=== PATIENT | male | born 1960 | race Caucasian/White ===

== ENCOUNTER 2016-08-20 13:12 | Emergency (ER) | payer OTHER ==
--- NOTE | 2016-08-20 13:25 | EDPHY ---
H & P Stated Complaint: hiking in [place]/pulle off tick 08/07 now with fevers/achy joints Time Seen by Provider: 08/20/16 13:22 HPI/ROS: CHIEF COMPLAINT: Fever, headache, myalgia. HISTORY OF PRESENT ILLNESS: The patient is a 56-year-old male who presents with 4 days of fever, chills, myalgia, joint pain, retro-orbital discomfort and headache. He does report finding a large black tick on his body 12 days ago after having been in [place] fly fishing several days prior. Patient was in [place] at the end of July. The tick was found on August 08. Patient developed intermittent fevers on August 15. He has been taking Tylenol for the fever, which works temporarily. He admits nausea. No vomiting, rash, chest pain, cough , sore throat, shortness of breath, palpitations, vomiting, diarrhea, urinary complaints, lightheadedness. REVIEW OF SYSTEMS: Aside from elements discussed in the HPI, a comprehensive 10-point review of systems was reviewed and is negative. PAST MEDICAL HISTORY: Denies. SOCIAL HISTORY: From [place], [place]. 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 VITAL SIGNS: Reviewed by me GENERAL: Well-developed, well-nourished, resting comfortably in no respiratory distress. HEENT: Atraumatic. Eyes: No icterus, no injection. Mouth: moist mucous membranes. No erythema or lesions. Neck: supple with no adenopathy. LUNGS: Clear to auscultation bilaterally, no wheezes, rhonchi or rales. CARDIAC: Regular rate and rhythm, no rubs, murmurs or gallops. THORAX: Healing tick lesion to left lateral thorax. ABDOMEN: Soft, nontender, nondistended, bowel sounds normal. BACK: No CVA tenderness. EXTREMITIES: No trauma. No edema. Range of motion is normal throughout. NEURO: Alert and oriented, grossly nonfocal. SKIN: Warm and dry, no rash. No axillary or groin adenopathy PSYCHIATRIC: Normal mentation, no agitation. Portions of this note were transcribed by a medical liaison. I personally performed a history, physical exam, medical decision making, and confirmed accuracy of information the transcribed note. Source: Patient Exam Limitations: No limitations - Personal History Current Tetanus/Diphtheria Vaccine: Yes - Medical/Surgical History Hx Asthma: No Hx Chronic Respiratory Disease: No Hx Diabetes: No Hx Cardiac Disease: No Hx Renal Disease: No Hx Cirrhosis: No Hx Alcoholism: No Hx HIV/AIDS: No Hx Splenectomy or Spleen Trauma: No Other PMH: denies - Social History Smoking Status: Never smoked Constitutional: Initial Vital Signs Temperature (C) 36.5 C 08/20/16 13:15 Heart Rate 71 08/20/16 13:15 Respiratory Rate 16 08/20/16 13:15 Blood Pressure 157/90 H 08/20/16 13:15 O2 Sat (%) 95 08/20/16 13:15 O2 Delivery Mode Room Air Allergies/Adverse Reactions: No Known Allergies Allergy (Unverified 08/20/16 13:15) Home Medications: Medication Instructions Recorded Doxycycline Hyclate [Vibramycin 100 mg PO BID #20 cap 08/20/16 100 MG (*)] Medical Decision Making ED Course/Re-evaluation: 56-year-old male presents with fever, headache, and myalgia that began 4 days ago. He was in [place] at the end of July but flew to [place]. On August 08 he noticed a large tick attached to himself which he promptly removed. A week later he developed these symptoms. He has a normal exam at this time. An IV was established and labs ordered. 1400: Consulted with Dr. Cruz, infectious disease. Recommendations for Lyme serology, with the understanding that these may be falsely negative, as well as presumptive treatment with doxycycline for rickettsial or spirochete or other tick-borne illnesses. I reviewed the patient's laboratory studies. Liver enzymes elevated. I have prescribed a course of Doxycycline for him. He understands to follow up with his primary care provider to ensure that his liver enzymes go down. He is comfortable with this plan. Differential Diagnosis: Differential diagnosis for this patient's symptom complex was considered including but not limited to relapsing tick fever, relapsing louse fever, rickettsial disease, dez mountain spotted fever, spirochete disease, Lyme disease, pneumonia, urinary tract infection, viral syndrome, and influenza. - Data Points Laboratory Results: Laboratory Results 08/20/16 14:00 08/20/16 14:00 08/20/16 08/20/16 14:00 14:00 WBC 6.36 10^3/uL 10^3/uL (3.80-9.50) RBC 4.13 10^6/uL L 10^6/uL (4.40-6.38) Hgb 13.8 g/dL g/dL (13.7-17.5) Hct 37.7 % L % (40.0-51.0) MCV 91.3 fL fL (81.5-99.8) MCH 33.4 pg pg (27.9-34.1) MCHC 36.6 g/dL g/dL (32.4-36.7) RDW 12.2 % % (11.5-15.2) Plt Count 200 10^3/uL 10^3/uL (150-400) MPV 11.2 fL fL (8.7-11.7) Neut % (Auto) 75.9 % H % (39.3-74.2) Lymph % (Auto) 14.6 % L % (15.0-45.0) Heard % (Auto) 8.6 % % (4.5-13.0) Eos % (Auto) 0.3 % L % (0.6-7.6) Baso % (Auto) 0.3 % % (0.3-1.7) Nucleat RBC Rel Count 0.0 % % (0.0-0.2) Absolute Neuts (auto) 4.82 10^3/uL 10^3/uL (1.70-6.50) Absolute Lymphs (auto) 0.93 10^3/uL L 10^3/uL (1.00-3.00) Absolute Monos (auto) 0.55 10^3/uL 10^3/uL (0.30-0.80) Absolute Eos (auto) 0.02 10^3/uL L 10^3/uL (0.03-0.40) Absolute Basos (auto) 0.02 10^3/uL 10^3/uL (0.02-0.10) Absolute Nucleated RBC 0.00 10^3/uL 10^3/uL (0-0.01) Immature Gran % 0.3 % % (0.0-1.1) Immature Gran # 0.02 10^3/uL 10^3/uL (0.00-0.10) Sodium 136 mEq/L mEq/L (134-144) Potassium 4.0 mEq/L mEq/L (3.5-5.2) Chloride 102 mEq/L mEq/L (97-110) Carbon Dioxide 22 mEq/l mEq/l (22-31) Anion Gap 12 mEq/L mEq/L (8-16) BUN 14 mg/dL mg/dL (7-23) Creatinine 0.8 mg/dL mg/dL (0.7-1.3) Estimated GFR > 60 Glucose 116 mg/dL H mg/dL (70-100) Calcium 9.1 mg/dL mg/dL (8.5-10.4) Total Bilirubin 2.8 mg/dL H mg/dL (0.1-1.4) Conjugated Bilirubin 1.7 mg/dL H mg/dL (0.0-0.5) Unconjugated Bilirubin 1.1 mg/dL mg/dL (0.0-1.1) AST 184 IU/L H IU/L (17-59) ALT 360 IU/L H IU/L (21-72) Alkaline Phosphatase 254 IU/L H IU/L (38-126) Total Protein 7.3 g/dL g/dL (6.3-8.2) Albumin 4.5 g/dL g/dL (3.5-5.0) Lipase 53.0 IU/L IU/L (23-300) Medications Given: Discontinued Medications Doxycycline Hyclate (Doxycycline Hyclate) 100 mg PO EDNOW ONE PRN Reason: Protocol Stop: 08/20/16 14:54 Last Admin: 08/20/16 14:58 Dose: 100 mg Departure - Departure Disposition: Home, Routine, Self-Care Clinical Impression: Tick bite Qualifiers: Encounter type: initial encounter Qualified Code(s): W57.XXXA - Bitten or stung by nonvenomous insect and other nonvenomous arthropods, initial encounter Fever Qualifiers: Fever type: unspecified Qualified Code(s): R50.9 - Fever, unspecified Condition: Good Instructions: Tick Bite (ED), Fever in Adults (ED) Additional Instructions: Take Doxycycline as prescribed. 100 mg by mouth 2 times a day for 10 days. You may call [facility] at [phone] to obtain the results of your blood smear for spirochetes as well as your at Lyme serology results. Follow up with your primary care provider next week for reevaluation. Your liver enzymes were elevated in the ED today and should be followed. Return for any serious worsening of condition. Please take Tylenol or ibuprofen for fevers control. Adult Pain & Fever Control: We recommend Acetaminophen (Tylenol) and Ibuprofen (Motrin,Advil) for pain and fever control. When fever is high or pain severe, both drugs can be used at the same time, but at different intervals. Please note the time differences. Your dose is: Acetaminophen 650 mg every 4 to 6 hours Ibuprofen 600 mg every 6 hours with food Note: do not take Acetaminophen with Hydrocodone (Vicodin, Lortab) or Oycodone (Percocet). These medications also contain Acetaminophen. No more than 3000mg of Acetaminophen should be taken in 24 hours (for an adult). Referrals: RUBEN PEREYRA [Other] - As per Instructions Prescriptions: Doxycycline Hyclate [Vibramycin 100 MG (*)] 100 mg PO BID #20 cap Report Scribed for: Marily Zamorano Report Scribed by: Moe Coyle Date of Report: 08/20/16 Time of Report: 13:25
[2016-08-20 14:14] LABS: % IMMATURE GRANULYOCYTES 0.3 % (0.0-1.1); ABSOLUTE IMMATURE GRANULOCYTES 0.02 10^3/uL (0.00-0.10); ADD DIFF? NO; ADD MORPH? NO; ADD SCAN? NO; ATYPICAL LYMPHOCYTE FLAG 40 (0-99); FRAGMENT RBC FLAG 0 (0-99); HEMATOCRIT 37.7 % (40.0-51.0); HEMOGLOBIN 13.8 g/dL (13.7-17.5); LEFT SHIFT FLG 0 (0-99); LIPEMIA HEMOLYSIS FLAG 90 (0-99); MEAN CELL HEMOGLOBIN 33.4 pg (27.9-34.1); MEAN CELL HEMOGLOBIN CONCENTR. 36.6 g/dL (32.4-36.7); MEAN CELL VOLUME 91.3 fL (81.5-99.8); MEAN PLATELET VOLUME 11.2 fL (8.7-11.7); PLATELET CLUMPS FLAG 0 (0-99); PLATELET COUNT 200 10^3/uL (150-400); RED BLOOD CELL COUNT 4.13 10^6/uL (4.40-6.38); RED CELL DISTRIBUTION WIDTH 12.2 % (11.5-15.2)
[2016-08-20 14:34] LABS: ALANINE AMINOTRANSFERASE 360 IU/L (21-72); ALBUMIN 4.5 g/dL (3.5-5.0); ALKALINE PHOSPHATASE 254 IU/L (38-126); ANION GAP 12 mEq/L (8-16); ASPARTATE AMINOTRANSFERASE 184 IU/L (17-59); BILIRUBIN,TOTAL 2.8 mg/dL (0.1-1.4); BILIRUBIN-CONJUGATED 1.7 mg/dL (0.0-0.5); BILIRUBIN-UNCONJUGATED 1.1 mg/dL (0.0-1.1); CALCIUM 9.1 mg/dL (8.5-10.4); CARBON DIOXIDE 22 mEq/l (22-31); CHLORIDE 102 mEq/L (97-110); CREATININE 0.8 mg/dL (0.7-1.3); GLOMERULAR FILTRATION RATE > 60; GLUCOSE 116 mg/dL (70-100); SODIUM 136 mEq/L (134-144); TOTAL PROTEIN 7.3 g/dL (6.3-8.2)
[2016-08-20] MEDS ORDERED: DOXYCYCLINE HYCLATE 100 MG CAP/TAB PO ONE (14:53)
[2016-08-20 15:37] VITALS: BP 136/93; PULSE 70; RESP 16; TEMP 98.2; O2SAT 97
[2016-08-24 11:44] LABS: MALARIAL PREP NONE SEEN (NONE SEEN)
== END 2016-08-20 15:37 | disposition home or self-care (01) ==
DX: A93.8 Other specified arthropod-borne viral fevers (principal)
CPT/HCPCS: 86618-90